=== PATIENT | male | born 1950 | race Caucasian/White ===

== ENCOUNTER 2020-07-06 18:05 | Emergency (ER) | payer BC, MEDICARE ==
[~2020-07-06] VITALS: Ht 180.3 cm; Wt 98.2 kg
--- NOTE | 2020-07-06 19:20 | NUR ---
Patient to xray.
[2020-07-06] MEDS ORDERED: normal saline 1000ML IV soln IVB ONE (20:45)
--- NOTE | 2020-07-06 20:46 | NUR ---
up to the BR to void, gave him a cup
[2020-07-06 21:09] LABS: BASOPHILS # (AUTO) 0.1 X10'3 (0-0.2); BASOPHILS % (AUTO) 0.4 % (0-1); EOSINOPHILS % (AUTO) 0.3 % (0-6); HEMATOCRIT 47.6 % (42.0-52.0); HEMOGLOBIN 15.8 g/dl (14.0-17.9); LYMPHOCYTES % (AUTO) 6.9 % (21-51); MEAN CORPUSCULAR HEMOGLOBIN 28.1 PG (27.0-31.0); MEAN CORPUSCULAR HGB CONC 33.2 g/dL (33.0-36.5); MEAN CORPUSCULAR VOLUME 84.6 FL (78-98); MONOCYTES # (AUTO) 0.9 X10'3 (0-0.9); MONOCYTES % (AUTO) 5.8 % (2-12); NEUTROPHILS # (AUTO) 12.8 X10'3 (1.8-7.7); NEUTROPHILS % (AUTO) 86.6 % (42-75); PLATELET COUNT 284 X10'3 (140-440); RED BLOOD COUNT 5.63 X10'6 (4.70-6.10); RED CELL DISTRIBUTION WIDTH 13.4 % (11.5-14.5); WHITE BLOOD COUNT 14.8 X10'3 (4.5-11.0)
[2020-07-06 21:22] LABS: PARTIAL THROMBOPLASTIN TIME 25 SECONDS (22-32)
[2020-07-06 21:23] LABS: ALANINE AMINOTRANSFERASE 32 U/L (12-78); ALBUMIN/GLOBULIN RATIO 1.1 (1.1-1.5); ALKALINE PHOSPHATASE 62 IU/L (46-116); ANION GAP 9 (8-16); ASPARTATE AMINO TRANSFERASE 26 U/L (10-37); BILIRUBIN,TOTAL 0.8 MG/DL (0.1-1.0); BLOOD UREA NITROGEN 17 MG/DL (7-18); BUN/CREATININE RATIO 16.5 (5.4-32.0); CALCIUM 9.3 MG/DL (8.5-10.1); CHLORIDE 102 MMOL/L (99-107); CREATININE 1.03 MG/DL (0.60-1.10); GLUCOSE 119 MG/DL (70-104); LIPASE 94 U/L (73-393); MAGNESIUM 2.1 MG/DL (1.5-2.4); POTASSIUM 3.9 MMOL/L (3.5-5.1); SODIUM 138 MMOL/L (135-145); TOTAL CARBON DIOXIDE 27.1 MMOL/L (24-32); TOTAL PROTEIN 7.5 G/DL (6.4-8.2); eGFR 71 ML/MIN
[2020-07-06 21:30] LABS: CLARITY,URINE CLEAR (Clear); COLOR,URINE YELLOW (Yellow); GLUCOSE, URINE NEGATIVE (Neg); KETONES,URINE NEGATIVE (Neg); LEUKOCYTE ESTERASE ,URINE NEGATIVE (Neg); NITRITES, URINE NEGATIVE (Neg); OCCULT BLOOD,URINE NEGATIVE (Neg); PH,URINE 5.5 (4.8-8.0); PROTEIN,URINE NEGATIVE (Neg); UROBILINOGEN,URINE 0.2 E.U/dL (0.2-1.0)
[2020-07-06 21:31] LABS: UA COLLECTION TYPE CLN CATCH MIDSTREAM
[2020-07-06] MEDS ORDERED: tamsulosin 0.4mg capsule PO ONE (21:55)
[2020-07-06] MEDS ORDERED: tamsulosin 0.4mg capsule PO SCH (21:55)
[2020-07-06] MEDS ORDERED: DOXY-11 PO (22:08)
[2020-07-06] MEDS ORDERED: FLO0.4C PO (22:08)
[2020-07-06] MEDS ORDERED: LIDOcaine 2% 10ml TOPICAL JELLY (Urojet) MM ONE (22:30)
== END 2020-07-06 23:13 | disposition home or self-care (01) ==
LOC: ER 18:06
DX: R33.9 Retention of urine, unspecified (principal); R10.2 Pelvic and perineal pain; K59.00 Constipation, unspecified; R30.9 Painful micturition, unspecified; Z88.1 Allergy status to other antibiotic agents; Z79.2 Long term (current) use of antibiotics; Z79.899 Other long term (current) drug therapy
CPT/HCPCS: 36415; 51702; 74018; 80053; 81003; 83690; 83735; 85025; 85610; 85730; 96360; 99284; J7030

== ENCOUNTER 2020-07-09 12:28 | Emergency (ER) | payer BC, MEDICARE ==
[~2020-07-09] VITALS: Ht 180.3 cm; Wt 100.0 kg
[~2020-07-09 12:28] MED LIST: DOXY-11 PO; FLO0.4C PO
[2020-07-09 12:38] VITALS: BP 146/88
--- NOTE | 2020-07-09 13:46 | NUR ---
PATIENT STATES HE HAS HAD THE WHALEN WITH LEG BAG FOR SEVERAL DAYS AND HIS URINE IS GETIING DARKER (ORANGE) IN COLOR. STATES HE IS TRYING TO DRINK PLENTY OF FLUIDS, BUT THE URINE COLOR IS NOT LIGHTENING UP. DENIES PAIN AT THIS TIME. URINE SPECIMEN COLLECTED AND SENT TO THE LAB.
[2020-07-09 14:47] LABS: CLARITY,URINE CLEAR (Clear); COLOR,URINE YELLOW (Yellow); GLUCOSE, URINE NEGATIVE (Neg); KETONES,URINE NEGATIVE (Neg); LEUKOCYTE ESTERASE ,URINE TRACE (Neg); NITRITES, URINE NEGATIVE (Neg); OCCULT BLOOD,URINE LARGE (Neg); PROTEIN,URINE 30 mg/dl (Neg); UA COLLECTION TYPE FOLEY CATH; UROBILINOGEN,URINE 0.2 E.U/dL (0.2-1.0)
[2020-07-09 15:05] LABS: BACTERIA,URINE NONE SEEN /HPF (Neg); RBC,URINE 20-50 /HPF (0-2)
[2020-07-09 15:06] LABS: MUCUS STRANDS NONE SEEN /LPF (Neg); SQUAMOUS EPITHELIAL CELL,UR FEW /LPF (FEW); WBC CLUMPS,URINE FEW /HPF (NEGATIVE)
[2020-07-09] MEDS ORDERED: DOXY-1 PO (15:11)
== END 2020-07-09 15:32 | disposition home or self-care (01) ==
LOC: ER 12:29
DX: T83.091A Other mechanical complication of indwelling urethral catheter, initial encounter (principal); N39.0 Urinary tract infection, site not specified; R33.9 Retention of urine, unspecified; Z88.1 Allergy status to other antibiotic agents; Z79.2 Long term (current) use of antibiotics; Z79.899 Other long term (current) drug therapy; Y92.89 Other specified places as the place of occurrence of the external cause
CPT/HCPCS: 81001; 87088; 99283